=== PATIENT | male | born 1940 | race Caucasian/White ===

== ENCOUNTER 2016-12-18 12:07 | Emergency (ER) | payer MEDICARE, OTHER ==
[2016-12-18] MEDS ORDERED: Bacitracin Oint 1 GM U/D Packet TOP ONE (12:37)
[2016-12-18 12:49] VITALS: BP 134/69
--- NOTE | 2016-12-18 13:24 | EDM.PDOC ---
ED HPI GENERAL MEDICAL PROBLEM - General Chief Complaint: Laceration Stated Complaint: CUT THUMB WHILE USING A SAW Time Seen by Provider: 12/18/16 13:00 Source of Information: Reports: Patient, Family History Limitations: Reports: No Limitations - History of Present Illness INITIAL COMMENTS - FREE TEXT/NARRATIVE: 76-year-old male caught the end of his thumb of the left hand in a table saw sustaining a laceration to the pulp. He has good sensation distally and normal strength and range of motion to the PIP joint. Onset: Sudden Duration: Hour(s): (Within the last hour) Location: Reports: Upper Extremity, Left Severity: Mild Associated Symptoms: Reports: No Other Symptoms - Related Data Allergies Allergy/AdvReac Type Severity Reaction Status Date / Time morphine AdvReac Nausea Verified 02/27/16 07:52 tramadol AdvReac Nausea Verified 02/27/16 07:52 Home Meds: Home Meds Acetaminophen/HYDROcodone [[place] 325-5 MG] 1 tab PO Q4H PRN 06/13/14 [History] Loperamide HCl [Loperamide] 2 mg PO Q4H PRN 06/13/14 [History] Lovastatin [Mevacor] 40 mg PO DAILY 06/13/14 [History] Lutein/Zeaxanthin [Lutein-Zeaxanthin 25-5 mg Sfgl] 1 tab PO BID 06/13/14 [ History] [place]-3 Fatty Acids [[place]-3] 1 tab PO DAILY 06/13/14 [History] Omeprazole [Prilosec] 20 mg PO DAILY 06/13/14 [History] Amylase/Lipase/Protease [Creon DR 12,000 Units] 1 cap PO TIDMEALS 06/15/14 [ History] Ondansetron HCl [Zofran] 4 mg PO Q4H PRN 11/07/14 [History] Past Medical History HEENT History: Reports: Hard of Hearing, Other (See Below) Other HEENT History: Doesn't wear hearing aides Cardiovascular History: Reports: Heart Murmur, High Cholesterol Gastrointestinal History: Reports: GERD, Pancreatitis, Other (See Below) Other Gastrointestinal History: Pancreatic CA. Abdominal hernia Psychiatric History: Reports: Anxiety Oncologic (Cancer) History: Reports: Pancreatic - Infectious Disease History Infectious Disease History: Reports: Chicken Pox - Past Surgical History GI Surgical History: Reports: Cholecystectomy, Other (See Below) Neurological Surgical History: Reports: Discectomy Musculoskeletal Surgical History: Reports: Knee Replacement Oncologic Surgical History: Reports: Other (See Below) Other Oncologic Surgeries/Procedures: ipple Social & Family History - Family History Family Medical History: Unobtainable - Tobacco Use Smoking Status *Q: Unknown Ever Smoked Years of Tobacco use: 1 Used Tobacco, but Quit: Yes Month Tobacco Last Used: 12 Second Hand Smoke Exposure: No - Caffeine Use Caffeine Use: Reports: Coffee - Alcohol Use Days Per Week of Alcohol Use: 7 Number of Drinks Per Day: 1 Total Drinks Per Week: 7 - Recreational Drug Use Recreational Drug Use: No - Living Situation & Occupation Living situation: Reports: Occupation: Retired ED ROS GENERAL - Review of Systems Review Of Systems: See Below Constitutional: Denies: Fever, Chills Respiratory: Denies: Shortness of Breath Cardiovascular: Denies: Chest Pain GI/Abdominal: Denies: Nausea, Vomiting Neurological: Reports: No Symptoms Psychiatric: Reports: No Symptoms ED EXAM, SKIN/RASH Exam: See Below Exam Limited By: No Limitations General Appearance: Alert, No Apparent Distress Respiratory/Chest: No Respiratory Distress, Lungs Clear Cardiovascular: Regular Rate, Rhythm Extremities: Other (Remainder of exam is limited to the left hand. The patient has a 3.5 cm irregular macerated laceration into the subcutaneous tissue of the pulp on the palmar surface of the left thumb.) Course - Vital Signs Last Recorded V/S: Last Vital Signs Temp 98.2 F 12/18/16 12:48 Pulse 68 12/18/16 12:48 Resp 18 12/18/16 12:48 BP 134/69 12/18/16 12:48 Pulse Ox 99 12/18/16 12:48 - Orders/Labs/Meds Orders: Active Orders 24 hr Category Date Time Status Vaccines to be Administered [RC] PER UNIT ROUTINE Care 12/18/16 13:31 Active Meds: Medications Discontinued Medications Generic Name Dose Route Start Last Admin Trade Name Rolandoq PRN Reason Stop Dose Admin Bacitracin 1 dose 12/18/16 12:37 12/18/16 12:49 Bacitracin Oint 1 Gm TOP 12/18/16 12:38 1 dose ONETIME ONE Administration Diphtheria/Tetanus/Acell Pertussis 0.5 ml 12/18/16 13:31 12/18/16 13:34 Adacel IM 12/18/16 13:32 0.5 ml .ONCE ONE Administration Lidocaine HCl 5 ml 12/18/16 12:37 12/18/16 12:49 Xylocaine-Mpf 1% INJECT 12/18/16 12:38 5 ml ONETIME ONE Administration - Re-Assessments/Exams Free Text/Narrative Re-Assessment/Exam: 12/18/16 13:20 The area was anesthetized with 1% lidocaine. It was cleansed thoroughly with saline and no significant foreign material was found. There was some debridement necessary because of the fragments of tissue involved. 10 4-0 Ethilon sutures were used to close the laceration. Topical bacitracin and a tube gauze was applied, patient will be placed on cephalexin 500 mg 3 times a day for the next week because of his history of pancreatic cancer and chemotherapy. Sutures can be removed in 8 or 9 days. Departure - Departure Time of Disposition: 13:41 Disposition: Home, Self-Care 01 Condition: Good Clinical Impression: Laceration of thumb Qualifiers: Encounter type: initial encounter Damage to nail status: without damage Foreign body presence: without foreign body Laterality: left Qualified Code(s): S61.012A - Laceration without foreign body of left thumb without damage to nail , initial encounter - Discharge Information Instructions: Laceration Care, Adult, [id number] Referrals: Humberto Duncan MD [Primary Care Provider] - Forms: ED Department Discharge Care Plan Goals: Take antibiotic 3 times a day, keep wound clean and covered while healing and use protective splint if needed. Sutures can be removed in 9 or 10 days. Recheck sooner if concerns of infection or not healing satisfactorily. Ibuprofen will help for pain, add stronger pain medications if needed - My Orders Last 24 Hours: My Active Orders 12/18/16 13:31 Vaccines to be Administered [RC] PER UNIT ROUTINE - Assessment/Plan Last 24 Hours: My Active Orders 12/18/16 13:31 Vaccines to be Administered [RC] PER UNIT ROUTINE
[2016-12-18] MEDS ORDERED: Diphtheria,Pertussis(Acell),Tetanus Vaccine 0.5 ML SDV IM ONE (13:31)
== END 2016-12-18 13:41 | disposition home or self-care (01) ==
LOC: JP.ED 12:07
DX: S61.012A Laceration without foreign body of left thumb without damage to nail, initial encounter (principal); E78.00 Pure hypercholesterolemia, unspecified; K21.9 Gastro-esophageal reflux disease without esophagitis; Z23 Encounter for immunization; Z85.07 Personal history of malignant neoplasm of pancreas; Z90.49 Acquired absence of other specified parts of digestive tract; Z96.659 Presence of unspecified artificial knee joint; Z98.890 Other specified postprocedural states; Z79.899 Other long term (current) drug therapy; Z88.5 Allergy status to narcotic agent; W27.0XXA Contact with workbench tool, initial encounter
CPT/HCPCS: 12002; 90471; 90715; 99283-25